=== PATIENT | male | born 1945 | race Caucasian/White ===

== ENCOUNTER → 2021-03-11 | Outpatient (CLI) | payer MEDICARE, OTHER ==
[~2021-03-11] MED LIST: MACROBID 100 M100 MG PO
== END ==
LOC: CT 09:00
DX: C61 Malignant neoplasm of prostate (principal); R59.0 Localized enlarged lymph nodes; R91.1 Solitary pulmonary nodule
CPT/HCPCS: 71260; Q9967

== ENCOUNTER → 2021-03-24 | Outpatient (CLI) | payer MEDICARE, OTHER | LOC: NM 07:49 | DX: C61 Malignant neoplasm of prostate (principal) | CPT/HCPCS: 73502; 73552; 78306; A9503 ==

== ENCOUNTER → 2021-03-26 | Outpatient (CLI) | payer MEDICARE, OTHER | LOC: EMI 14:49 | DX: C61 Malignant neoplasm of prostate (principal); C79.51 Secondary malignant neoplasm of bone; M19.09 Primary osteoarthritis, other specified site | CPT/HCPCS: 73720; A9577 ==

== ENCOUNTER 2021-04-04 05:15 | Emergency (ER) | payer MEDICARE, OTHER ==
[2021-04-04 05:56] LABS: HEMOGLOBIN 13.5 gm/dl (14.0-17.5); RED BLOOD COUNT 4.41 M/UL (4.20-5.50); WHITE BLOOD COUNT 8.2 K/UL (4.5-11.0)
[2021-04-04 06:13] LABS: BUN/CREATININE RATIO 29 (0-10)
[2021-04-04] MEDS ORDERED: MACROBID 100 M100 MG PO (08:16)
== END 2021-04-04 08:27 | disposition home or self-care (01) ==
LOC: ER1 05:15
PROVIDERS: Family Medicine
DX: R31.9 Hematuria, unspecified (principal); M19.90 Unspecified osteoarthritis, unspecified site; F17.210 Nicotine dependence, cigarettes, uncomplicated; Z85.46 Personal history of malignant neoplasm of prostate; Z79.899 Other long term (current) drug therapy
CPT/HCPCS: 80053; 81001; 85025; 87086; 99283

== ENCOUNTER → 2021-05-12 | Outpatient (CLI) | payer MEDICARE, OTHER ==
[~2021-05-12] MED LIST changes: +[UNRECOGNIZED DRUG - REMARK]
== END ==
LOC: US 11:00
DX: C61 Malignant neoplasm of prostate (principal)

== ENCOUNTER → 2021-06-18 | Outpatient (CLI) | payer MEDICARE, OTHER ==
[~2021-06-18] MED LIST changes: -[UNRECOGNIZED DRUG - REMARK]
== END ==
LOC: CT 10:00
DX: C61 Malignant neoplasm of prostate (principal); C79.51 Secondary malignant neoplasm of bone; R91.1 Solitary pulmonary nodule; K76.9 Liver disease, unspecified; R59.0 Localized enlarged lymph nodes; S72.121A Displaced fracture of lesser trochanter of right femur, initial encounter for closed fracture
CPT/HCPCS: 71260; Q9967

== ENCOUNTER 2021-06-23 11:30 | Emergency (ER) | payer MEDICARE, OTHER ==
[2021-06-23 13:05] LABS: BUN/CREATININE RATIO 27 (0-10)
[2021-06-23 13:28] LABS: RED BLOOD COUNT 2.86 M/UL (4.20-5.50); WHITE BLOOD COUNT 3.8 K/UL (4.5-11.0)
[2021-06-23] MEDS ORDERED: [UNRECOGNIZED DRUG - REMARK] (19:14)
== END 2021-06-23 19:42 | disposition home or self-care (01) ==
LOC: ER1 11:30
PROVIDERS: Physician Assistant
DX: R31.9 Hematuria, unspecified (principal); J44.9 Chronic obstructive pulmonary disease, unspecified
CPT/HCPCS: 51700; 51701; 80053; 81001; 85025; 85610; 85730; 87086; 99283; J2270; J2405

== ENCOUNTER → 2021-06-30 | Outpatient (CLI) | payer MEDICARE, OTHER ==
[~2021-06-30] VITALS: Ht 175.3 cm; Wt 68.0 kg
[~2021-06-30] MED LIST changes: +[UNRECOGNIZED DRUG - REMARK]
[2021-06-30 12:48] LABS: HEMOGLOBIN 7.3 gm/dl (14.0-17.5)
== END ==
LOC: OPSV 12:20
PROVIDERS: Internal Medicine Hematology & Oncology
DX: D64.9 Anemia, unspecified (principal)
CPT/HCPCS: 36415; 36430; 85014; 85018; 86850; 86920; J7050; P9016

== ENCOUNTER → 2021-07-02 | Outpatient (CLI) | payer MEDICARE, OTHER | LOC: KOH-I 13:09 | DX: C61 Malignant neoplasm of prostate (principal); C79.51 Secondary malignant neoplasm of bone | CPT/HCPCS: 36430; 93970; P9016 ==

== ENCOUNTER 2021-08-15 04:49 | Emergency (ER) | payer MEDICARE, OTHER ==
[2021-08-15 06:06] LABS: HEMOGLOBIN 8.1 gm/dl (14.0-17.5); RED BLOOD COUNT 2.78 M/UL (4.20-5.50); WHITE BLOOD COUNT 7.1 K/UL (4.5-11.0)
[2021-08-15 06:23] LABS: BUN/CREATININE RATIO 49 (0-10)
== END 2021-08-15 09:47 | disposition home or self-care (01) ==
LOC: ER1 04:49
PROVIDERS: Family Medicine
DX: M54.9 Dorsalgia, unspecified (principal); F17.200 Nicotine dependence, unspecified, uncomplicated; Z79.899 Other long term (current) drug therapy; Z85.46 Personal history of malignant neoplasm of prostate; W19.XXXA Unspecified fall, initial encounter
CPT/HCPCS: 70450; 71045; 72125; 72128; 72131; 72170; 80048; 85025; 93005; 99284